=== PATIENT | female | born 1990 | race Caucasian/White ===

== ENCOUNTER 2022-07-17 08:16 | Emergency (ER) | payer OTHER, SELFPAY ==
[2022-07-17 08:26] VITALS: BP 158/90; PULSE 98; O2SAT 93
--- NOTE | 2022-07-17 08:29 | ED.OVERDOSE ---
HPI - Overdose General Chief Complaint: Overdose Stated Complaint: OD,NARCAN BY BYSTANDER W/GOOD RESULTS PER EMS Time Seen by Provider: 07/17/22 08:24 Source: patient and EMS Mode of arrival: EMS History of Present Illness HPI Narrative: overdose of opioid received narcan in the field awake and alert now,denies SI,does not want detox complaint: accidental overdose Onset (ago): hour(s) (1) Context: Accidental Overdose: wanted to get high Treatments Prior to Arrival: narcan Related Data Allergies Allergy/AdvReac Type Severity Reaction Status Date / Time No Known Allergies Allergy Unverified 05/28/20 19:13 [No Known Allergies*] Review of Systems Review of Systems: Yes all other systems are reviewed and are negative Cardiovascular: Cardiovascular: Reports no additional cardiovascular complaints Respiratory: Respiratory: Reports no additional respiratory complaints Gastrointestinal: Gastrointestinal: Reports no additional gastrointestinal complaints Musculoskeletal: Musculoskeletal: Reports no additional musculoskeletal complaints Allergic/Immunologic: Allergic/Immunologic: Reports no additional allergic/immunologic complaints PMFSH Social History Social History Advance Directives: No Advance Directives Information Provided: No Physical Exam Vital Signs: Vital Signs: Last Vital Signs Temp 97.9 F 07/17/22 11:45 Pulse 51 07/17/22 11:45 Resp 18 07/17/22 08:34 BP 121/69 07/17/22 11:45 Pulse Ox 100 07/17/22 11:45 O2 Del Method 07/17/22 11:45 BMI result Body Mass Index 22.4 Const: General: cooperative Nutritional Appearance: well nourished Limitations: no limitations HEENT: Head: Yes normal to inspection Ears: hearing grossly normal bilaterally General nose exam: Normal external nose present Face and sinus: Yes normal facial exam Mouth: Normal oral and palatal mucosa present Throat: Yes posterior oropharynx normal Neck: Neck: Yes full ROM Chest: Chest palpation & inspection: normal inspection of the chest Breast/axilla inspection: normal inspection of the breasts Resp: Effort & Inspection: normal respiratory effort Auscultation: clear to auscultation bilaterally Percussion: percussion normal Cardio: Jugular venous distension: no JVD Rate: regular rate Rhythm: regular rhythm Heart sounds: S1 normal heart sound present GI: Inspection: Yes normal to inspection Palpation (GI): Soft to palpation Percussion: Yes normal to percussion Auscultation: normal bowel sounds : General: Yes no CVA tenderness Back/Spine/Pelvis: Back: no CVA tenderness Skin: General skin exam: no rashes or lesions noted Lesions: no lesions Rashes: no rashes Course Reevaluation(s) Reevaluation #1: SHE IS AWAKE AND ALERT SHE HAS A STABLE GAIT SHE ATE LUNCH. SHE WAS SEEN BY THE [employer] SHE DOES WANT ANY HELP. AT THIS TIME WILL DISCHARGE THE PATIENT HOME Time: 15:34 Discharge Plan Discharge Clinical Impression: Drug overdose Patient Disposition: Home, Self-Care Instructions: Adult Overdose (ED) Additional Instructions: YOU REFUSEd DETOX HELP YOU WELCOME TO COME BACK ANY TIME IF YOU WANT HELP WITH DETOX Interventions: ED Discharge Assessment Last Done: 07/17/22 16:08 Discharge Date/Time: 07/17/22 16:08
--- NOTE | 2022-07-17 08:30 | PC.NURSE ---
PER [employer], THIS PT'S BELONGINGS ARE BEING PUT IN DECON @ THIS TIME
[2022-07-17 08:34] VITALS: BP 150/84; PULSE 60; RESP 18; TEMP 36.1; O2SAT 100; BMI 22.4
[2022-07-17 11:45] VITALS: BP 121/69; PULSE 51; TEMP 36.6; O2SAT 100
--- NOTE | 2022-07-17 11:46 | MHC.CARE ---
Pt declined to engage in SUDE. Pt reports methadone from [facility]. Pt wants to speak with a recovery advocate.
--- NOTE | 2022-07-17 13:45 | MHC.RECOVSUP ---
? Reason for consult Recovery support o Current location: ED13 o Identified substance use concern: Heroin - Overdose - Support ? Intervention: <del>o</del> <del>ATS</del> <del>bed</del> <del>search</del> <del>started/completed/in</del> <del>process</del> <del>o</del> <del>MAT</del> <del>started</del> <del>or</del> <del>to</del> <del>be</del> <del>started</del> <del>o</del> <del>Community</del> <del>resources</del> <del>provided</del> <del>o</del> <del>Harm</del> <del>reduction</del> <del>discussion</del> <del>?</del> <del>Plan:</del> <del>o</del> <del>Referral</del> <del>to</del> <del>[facility]</del> <del>o</del> <del>Bed</del> <del>search</del> <del>in</del> <del>progress</del> <del>to</del> <del>o</del> <del>Follow</del> <del>up</del> <del>tomorrow</del> <del>o</del> <del>Patient</del> <del>awaiting</del> <del>crisis</del> <del>evaluation</del> <del>o</del> <del>Patient</del> <del>to</del> <del>follow</del> <del>up</del> <del>with</del> <del>[facility]</del> <del>after</del> <del>discharge</del> ? Additional information: Patient Refuses any Support.. was able to give patient resources
== END 2022-07-17 16:08 | disposition home or self-care (01) ==
PROVIDERS: Emergency Provider Emergency Medicine
DX: T40.1X1A Poisoning by heroin, accidental (unintentional), initial encounter (principal); Y92.9 Unspecified place or not applicable; Z71.51 Drug abuse counseling and surveillance of drug abuser
CPT/HCPCS: 96360; 99283; 99284

== ENCOUNTER 2022-10-01 10:04 | Emergency (ER) | payer OTHER, SELFPAY ==
--- NOTE | 2022-10-01 10:12 | ED_ITS ---
HPI - Overdose General Chief Complaint: ETOH/Substance Use Stated Complaint: od Source: EMS Mode of arrival: EMS Limitations: no limitations History of Present Illness HPI Narrative: Pt overdosed on heroin she was found unresponsive and she was given narcan,she is now awake and alert,she is no SI and she is declining detox complaint: accidental overdose Onset (ago): hour(s) (1) Intent: wanted to escape Context: Accidental Overdose: wanted to get high Treatments Prior to Arrival: oxygen and narcan Related Data Allergies Allergy/AdvReac Type Severity Reaction Status Date / Time No Known Allergies Allergy Unverified 05/28/20 19:13 [No Known Allergies*] Review of Systems Constitutional: Constitutional: Reports no additional constitutional complaints Cardiovascular: Cardiovascular: Reports no additional cardiovascular complaints Gastrointestinal: Gastrointestinal: Reports no additional gastrointestinal complaints Neurologic: Reports system reviewed and no additional complaints, except as documented and Denies behavioral changes Psychiatric: Psychiatric: Denies behavioral changes and Denies depression [facility] Past Medical History [facility] Narrative: Opioid Use Disorder Social History Social History Advance Directives: No Advance Directives Information Provided: No Physical Exam Vital Signs: Vital Signs: Last Vital Signs Temp 97.9 F 10/01/22 10:14 Pulse 79 10/01/22 11:50 Resp 16 10/01/22 11:50 BP 120/56 L 10/01/22 11:50 Pulse Ox 96 10/01/22 11:50 O2 Del Method 10/01/22 11:50 BMI result Body Mass Index 19.8 Const: General: cooperative, well developed, alert, awake and Physically active HEENT: Head: Yes normal to inspection Ears: hearing grossly normal bilaterally Face and sinus: Yes normal facial exam Mouth: Normal oral and palatal mucosa present Throat: Yes posterior oropharynx normal Neck: Neck: Yes normal visual inspection and Yes full ROM Chest: Chest palpation & inspection: normal inspection of the chest Resp: Effort & Inspection: normal respiratory effort Auscultation: clear to auscultation bilaterally Cardio: Jugular venous distension: no JVD Rate: regular rate Rhythm: regular rhythm GI: Inspection: Yes normal to inspection Palpation (GI): Soft to palpation, not firm, nontender, no guarding and not rigid Percussion: Yes normal to percussion Skin: General skin exam: elasticity normal Lesions: no lesions Rashes: no rashes Extrem: General: Yes normal to inspection and Yes full ROM Right upper extremity: normal to inspection Course Reevaluation(s) Reevaluation #1: She was seen by legal recovery specialist she refused help,she is on methadone refuses detox Time: 12:22 Medications Administered Discontinued Medications Generic Name Dose Route Start Last Admin Trade Name Sadie PRN Reason Stop Dose Admin Ondansetron HCl 4 mg 10/01/22 10:13 10/01/22 10:19 Ondansetron Odt 4 Mg Tab.Rapdis TRANSLINGU 10/01/22 10:14 4 mg ONCE ONE Administration Medical Decision Making Medical Decision Making MDM Narrative: presented with heroin OD will observe get legal recovery specialist to see the pt Differential Diagnosis aspiration pneumonia/endocarditis/respiratory failure Discharge Plan Discharge Clinical Impression: Accidental heroin overdose Patient Disposition: Home, Self-Care Instructions: Narcotic Safety (ED), Opioid Use Disorder (ED) Additional Instructions: you are refusing detox,if you change your mind we are here for you Interventions: Luna-Suicide Risk Severity Scale Last Done: 10/01/22 10:32 Discharge Date/Time: 10/01/22 12:34
[2022-10-01 10:14] VITALS: BP 131/80; PULSE 75; RESP 14; TEMP 36.6; O2SAT 99; BMI 19.8
[2022-10-01] MEDS: Ondansetron ODT 4 MG TAB.RAPDIS TRANSLINGU (10:19)
--- NOTE | 2022-10-01 11:27 | HO.SUDE ---
Met with pt in ED22 to discuss substance use. Pt awake, alert, pleasant and engages in conversation. Pt has difficulty with conversation due to constant limb jerking. Pt reports using 2 bags heroin this morning, IV, after not using x over a month. Pt is currently going to [facility] OT, reports 60 mg daily x 3 months. Pt reports positive effect with methadone and is very happy to be a part of the program. Pt reports crack, [facility], $150 daily. Pt reports involuntary limb movements happen with crack use, states That's why they call me crazy legs. Pt is not interested in ATS at this time. Pt reports living with a friend in [place], David, who pt is requesting t/w to call. David had gone on a cruise and is returning today. Pt reports David will come to [facility] to pick up worker pt when ready. Pt denies questions or concerns at this time. Voicemail left for David, awaiting return call.
[2022-10-01 11:50] VITALS: BP 120/56; PULSE 79; RESP 16; O2SAT 96
--- NOTE | 2022-10-01 12:35 | MHC.RECOVRN ---
Pt requesting to dc to friends house. Provider and RN aware.
== END 2022-10-01 12:34 | disposition home or self-care (01) ==
PROVIDERS: Emergency Provider Emergency Medicine
DX: R40.4 Transient alteration of awareness (principal); T40.1X1A Poisoning by heroin, accidental (unintentional), initial encounter; Y92.9 Unspecified place or not applicable; F11.20 Opioid dependence, uncomplicated
CPT/HCPCS: 99284

== ENCOUNTER 2023-01-14 19:22 | Emergency (ER) | payer OTHER, SELFPAY ==
[2023-01-14] VITALS (10 sets, daily range): BP systolic 91–115; BP diastolic 52–69; PULSE 59–104; RESP 8–16; TEMP 37.2; O2SAT 96–99; BMI 19.1
--- NOTE | ~2023-01-14 | XR_ITS ---
EXAMINATION: XR CHEST CLINICAL INFORMATION: Low respiratory rate COMPARISON: None available. TECHNIQUE: Frontal view of the chest was obtained. FINDINGS: Lung volumes are symmetric. No focal consolidation is seen. There is suggestion of central peribronchial thickening. No evidence of pneumothorax, pleural effusion, or overt pulmonary edema. The cardiomediastinal contour is unremarkable. No acute osseous findings are seen. XR/XR chest 1V IMPRESSION: Suggestion of central peribronchial thickening which may reflect airways disease/bronchitis. No focal consolidation.
--- NOTE | ~2023-01-14 | CT_ITS ---
EXAMINATION: CT HEAD WITHOUT CONTRAST CLINICAL INFORMATION: Altered mental status. COMPARISON: None available. TECHNIQUE: Contiguous axial imaging was performed from the skull base to vertex without intravenous administration of contrast. This CT examination was performed using dose optimization techniques as appropriate, variously including the following: *Automated exposure control. *Adjustment of mA and/or kV according to patient size (this includes techniques or standardized protocols for targeted exams where dose is matched to indication/reason for exam; i.e. extremities or head). *Use of iterative reconstruction technique. DLP: 643 mGy-cm FINDINGS: There is no evidence of acute intracranial hemorrhage or edematous territorial infarction. [place]-white matter differentiation is preserved. There is no abnormal attenuation within the brain parenchyma. The ventricles are normal in morphology and size. No evidence for obstructive hydrocephalus. The cerebellar tonsils are positioned at the level the foramen magnum. The suprasellar cistern remains widely patent. No abnormal mass effect or midline shift. No extra-axial fluid collections. No acute soft tissue or osseous abnormalities. The mastoid air cells and visualized paranasal sinuses are clear. CT/CT head/brain wo IV con IMPRESSION: 1. No evidence of acute intracranial hemorrhage or edematous territorial infarction. 2. No demonstrated abnormal mass effect on the noncontrast evaluation.
--- NOTE | 2023-01-14 19:32 | ECG_ITS ---
Test Reason : OVERDOSE Blood Pressure : / mmHG Vent. Rate : 099 BPM Atrial Rate : 099 BPM P-R Int : 150 ms QRS Dur : 086 ms QT Int : 386 ms P-R-T Axes : 080 072 071 degrees QTc Int : 495 ms Normal sinus rhythm Right atrial enlargement Prolonged QT Abnormal ECG No previous ECGs available Referred By: Jos Souza Electronically Signed By:MARINA ROLLINS MD
[2023-01-14] MEDS: diphenhydrAMINE HCL 50 MG/ML VIAL IM (19:50)
[2023-01-14] MEDS: Haloperidol Lactate 5 MG/ML VIAL IM (19:50)
[2023-01-14] MEDS: LORazepam 2 MG/ML VIAL IM (19:50)
--- NOTE | 2023-01-14 19:55 | ED.OVERDOSE ---
HPI - Overdose General Chief Complaint: Overdose <MARIAM Marie - Last Filed: 01/15/23 01:32> Stated Complaint: ?OD/UNDINF OF SOMETHING,COMB,+REST,PD ONBOARD <MARIAM Marie Last Filed: 01/15/23 01:32> Time Seen by Provider: 01/14/23 19:24 <MARIAM Marie - Last Filed: 01/15/23 01:32> Source: EMS and police <MARIAM Marie - Last Filed: 01/15/23 01:32> Mode of arrival: EMS <MARIAM Marie - Last Filed: 01/15/23 01:32> Limitations: no limitations <MARIAM Marie Last Filed: 01/15/23 01:32> History of Present Illness HPI Narrative: 32-year-old female presents with suspected overdose, arrives via EMS with police on board patient was found with a retic behavior and then was found unresponsive outside of [facility]. Patient unable to provide history or review of systems. Arrives combative, and not cooperative in restraints <MARIAM Marie Last Filed: 01/15/23 01:32> Related Data Allergies/Adverse Reactions: Allergies Allergy/AdvReac Type Severity Reaction Status Date / Time No Known Allergies Allergy Unverified 05/28/20 19:13 [No Known Allergies*] <MARIAM Marie - Last Filed: 01/15/23 01:32> Review of Systems Review of Systems: Yes Unobtainable due to mental status <MAIRAM Marie - Last Filed: 01/15/23 01:32> PMFSH Past Medical History Attestation statement: The following information was validated with the patient. <MARIAM Marie Last Filed: 01/15/23 01:32> Source: old records reviewed and nursing notes reviewed <MARIAM Marie Last Filed: 01/15/23 01:32> Social History Social History: Social History Alcohol intake: current Alcohol intake frequency: a few times a month Smoked in Last 30 Days: Yes Use of substances other than those prescribed or required for medical reasons: Refusing to respond Advance Directives: No Advance Directives Information Provided: No <MARIAM Marie - Last Filed: 01/15/23 01:32> Physical Exam Vital Signs: Vital Signs: Last Vital Signs Temp 97.8 F 01/15/23 05:26 Pulse 71 01/15/23 05:26 Resp 16 01/15/23 05:26 BP 155/78 H 01/15/23 05:26 Pulse Ox 96 01/15/23 05:26 O2 Del Method Room Air 01/14/23 22:25 O2 Flow Rate 2 01/14/23 22:09 BMI result Body Mass Index 19.1 Vital signs stable <MARIAM Marie - Last Filed: 01/15/23 01:32> Vital Signs: Last Vital Signs Temp 97.8 F 01/15/23 05:26 Pulse 71 01/15/23 05:26 Resp 16 01/15/23 05:26 BP 155/78 H 01/15/23 05:26 Pulse Ox 96 01/15/23 05:26 O2 Del Method Room Air 01/14/23 22:25 O2 Flow Rate 2 01/14/23 22:09 BMI result Body Mass Index 19.1 <Tod Paiz MD - Last Filed: 01/15/23 06:23> Appearance: Patient awake, moving all extremities, combative, uncooperative.? No acute distress.? Head: Normocephalic, atraumatic, no step-offs or deformities Eyes: Pupils equal, round and reactive to light.? ENT: Pharynx normal.? Neck: Normal inspection.? Neck supple.? CVS: Rapid rate normal rhythm likely sinus tachycardia.? Pulses normal.? Respiratory: No respiratory distress.? Breath sounds normal.? Abdomen: Soft and nontender.? Skin: Skin warm and dry.? Normal skin color.? Normal skin turgor.? Extremities: No lower extremity edema.? No calf ttp. 5/5 strength to bilateral upper and lower extremities Neuro: Patient awake, moving all extremities, combative, uncooperative. On re-evaluation cranial nerves 2-12 intact. <MARIAM Marie - Last Filed: 01/15/23 01:32> Course Reevaluation(s) Reevaluation #1: Patient with a slight leukopenia in slight normocytic anemia which appears to be around her baseline. Chemistry unremarkable. Salicylates, acetaminophen and ethanol negative. Urine toxicology pending. COVID negative. Head CT no acute intracranial hemorrhage or edematous territorial infarction. No demonstrated abnormal mass-effect on noncontrast evaluation. I did order chest CT on this patient which is pending. Sign-out given to <MARIAM Marie - Last Filed: 01/15/23 01:32> Time: 01:31 <MARIAM Marie - Last Filed: 01/15/23 01:32> Reevaluation #2: 0615: End physician observation: I assumed care of this patient from my colleague, Norris Souza at 02:00 hours. Patient's chest x-ray and urine tox screen work pending. The radiology reading is as follows of chest is as follows:: XR chest 1V IMPRESSION: Suggestion of central peribronchial thickening which may reflect airways disease/bronchitis. No focal consolidation. Dictated By:Dennis Alarcon MD The patient's urine tox screen was positive for fentanyl and for cocaine. The patient is awake and alert. I did talk to the patient and she states that she thought she was injecting cocaine. She is not interested in talking to our care team about getting into a drug treatment program. The patient is requesting to go home. I did tell her that it was a very dangerous time to use street drugs and that all street drugs are contaminated with fentanyl if she continues to use she will eventually from a fentanyl overdose. The patient was given intranasal Narcan rescue pack to go home with. She was given printed and verbal instructions and discharged home <Tod Paiz MD - Last Filed: 01/15/23 06:23> Time: 06:15 <Tod Paiz MD - Last Filed: 01/15/23 06:23> Medications Administered Discontinued Medications Generic Name Dose Route Start Last Admin Trade Name Freq PRN Reason Stop Dose Admin Diphenhydramine HCl 50 mg 01/14/23 19:24 01/14/23 19:50 Diphenhydramine Hcl 50 Mg/Ml Vial IM 01/14/23 19:25 50 mg ONCE ONE Administration Haloperidol Lactate 5 mg 01/14/23 19:24 01/14/23 19:50 Haloperidol Lactate 5 Mg/Ml Vial IM 01/14/23 19:25 5 mg ONCE ONE Administration Lorazepam 2 mg 01/14/23 19:24 01/14/23 19:50 Lorazepam 2 Mg/Ml Vial IM 01/14/23 19:25 2 mg STAT STA Administration Naloxone HCl 4 mg 01/15/23 00:52 01/15/23 00:55 Naloxone Hcl Nasal 4 Mg [place] NOSTRILALT 01/15/23 00:53 4 mg ONCE ONE Administration Naloxone HCl 4 mg 01/15/23 01:29 01/15/23 02:30 Naloxone Hcl Nasal Take Home 4 Mg [place] NOSTRILALT 01/15/23 01:30 4 mg ONCE ONE Administration <MARIAM Marie - Last Filed: 01/15/23 01:32> Medications Administered Discontinued Medications Generic Name Dose Route Start Last Admin Trade Name Dougq PRN Reason Stop Dose Admin Diphenhydramine HCl 50 mg 01/14/23 19:24 01/14/23 19:50 Diphenhydramine Hcl 50 Mg/Ml Vial IM 01/14/23 19:25 50 mg ONCE ONE Administration Haloperidol Lactate 5 mg 01/14/23 19:24 01/14/23 19:50 Haloperidol Lactate 5 Mg/Ml Vial IM 01/14/23 19:25 5 mg ONCE ONE Administration Lorazepam 2 mg 01/14/23 19:24 01/14/23 19:50 Lorazepam 2 Mg/Ml Vial IM 01/14/23 19:25 2 mg STAT STA Administration Naloxone HCl 4 mg 01/15/23 00:52 01/15/23 00:55 Naloxone Hcl Nasal 4 Mg [place] NOSTRILALT 01/15/23 00:53 4 mg ONCE ONE Administration Naloxone HCl 4 mg 01/15/23 01:29 01/15/23 02:30 Naloxone Hcl Nasal Take Home 4 Mg [place] NOSTRILALT 01/15/23 01:30 4 mg ONCE ONE Administration <Tod Paiz MD - Last Filed: 01/15/23 06:23> Medical Decision Making Medical Decision Making MDM Narrative: 32-year-old female presents the emergency department with EMS and police on cut cooperative, combative after substance abuse. Physical exam patient awake, moving all extremities, uncooperative not answering questions. Diaphoretic. Regular rate past rhythm likely secondary to agitation. Lungs clear. Abdomen soft nontender nondistended. Pupils pinpoint bilaterally however responsive Likely polysubstance abuse. Will rule out intracranial hemorrhage. Will also rule out electrolyte abnormalities. Will also rule out drug induced rhabdomyolysis Plan labs, imaging, U tox, ethanol, salicylates and acetaminophen. Due to patient's behavior she has a harm to self and others, medication restraints have been put in as well as 4 point physical restraints. Nursing in security at bedside upon patient's arrival. <MARIAM Marie - Last Filed: 01/15/23 01:32> Differential Diagnosis Differential Diagnoses: The differential diagnosis associated with the presentation includes <MARIAM Marie - Last Filed: 01/15/23 01:32> Likely polysubstance abuse. Will rule out intracranial hemorrhage. Will also rule out electrolyte abnormalities. Will also rule out drug induced rhabdomyolysis <MARIAM Marie - Last Filed: 01/15/23 01:32> Admission/Observation Consideration of admission/observation: Escalation of care including admission/observation considered <MARIAM Marie Last Filed: 01/15/23 01:32> Lab Data MDM Lab Attestation statement: I reviewed the patient's lab results. <MARIAM Marie - Last Filed: 01/15/23 01:32> Result Diagrams: 01/14/23 20:04 01/14/23 20:04 <MARIAM Marie Last Filed: 01/15/23 01:32> Labs: Lab Results 01/14/23 01/14/23 01/14/23 Range/Units 20:04 20:04 20:04 WBC 3.9 L (4.8-10.8) X10*3/uL RBC 4.05 L (4.20-5.50) X10*6/uL Hgb 11.6 L (12.0-16.0) g/dl Hct 35.5 L (37.0-47.0) % MCV 87.7 (80.0-98.0) fL MCH 28.6 (27.0-33.0) pg MCHC 32.7 (31.0-35.0) g/dl RDW 13.5 (11.0-16.0) % Plt Count 260 (160-400) X10*3/uL MPV 9.5 (9.4-12.3) fL Immature Gran % (Auto) 0.3 (0.0-0.4) % Neut % (Auto) 43.8 L (45-73) % Lymph % (Auto) 43.4 H (20-40) % [place] % (Auto) 8.3 (2-11) % Eos % (Auto) 3.4 (0-4) % Baso % (Auto) 0.8 (0-2) % Lymph # (Auto) 1.7 (1.2-4.9) X10*3/uL [place] # (Auto) 0.3 (0.1-1.2) X10*3/uL Eos # (Auto) 0.1 (0.0-0.4) X10*3/uL Baso # (Auto) 0.0 (0.0-0.2) X10*3/uL Abs Immat Gran (auto) 0.01 (0.00-0.03) X10*3/uL Absolute Neuts (auto) 1.7 L (2.0-8.3) x10*3/uL Absolute Nucleated RBC 0.000 (0.0-0.012) X10*3/uL Nucleated RBC % (auto) 0.0 (0.0-0.2) /100WBC Sodium 144 (135-145) mmol/L Potassium 3.3 (3.3-5.1) mmol/L Chloride 109 H (96-108) mmol/L Carbon Dioxide 25 (22-29) mmol/L Anion Gap 13 (12-20) BUN 15 (9-16) mg/dL Creatinine 0.97 (0.5-1.4) mg/dL Estim Creat Clear Calc 66.3 Estimated GFR > 60 Random Glucose 65 (60-115) mg/dL Calcium 9.2 (8.4-10.2) mg/dL Magnesium 2.0 (1.6-2.6) mg/dL Total Bilirubin 0.5 (0.0-1.0) mg/dL AST 26 (5-31) U/L ALT 38 H (0-31) U/L Alkaline Phosphatase 69 (39-117) U/L Total Creatine Kinase 124 (26-140) U/L Total Protein 7.4 (6.5-8.0) g/dL Albumin 4.3 (3.5-5.0) g/dL Salicylates < 5.0 L (15-30) mg/dL Urine Opiates Screen (Not Detect) Urine Fentanyl Screen (Not Detect) Acetaminophen < 17 (<30) mcg/mL Ur Barbiturates Screen (Not Detect) Ur Phencyclidine Scrn (Not Detect) Ur Amphetamines Screen (Not Detect) U Benzodiazepines Scrn (Not Detect) Urine Cocaine Screen (Not Detect) U Marijuana (THC) Screen (Not Detect) Ethyl Alcohol mg/dL COVID-19 ([place]) Negative (Negative) COVID-19 Clin Com See Note 01/14/23 01/15/23 Range/Units 20:04 05:33 WBC (4.8-10.8) X10*3/uL RBC (4.20-5.50) X10*6/uL Hgb (12.0-16.0) g/dl Hct (37.0-47.0) % MCV (80.0-98.0) fL MCH (27.0-33.0) pg MCHC (31.0-35.0) g/dl RDW (11.0-16.0) % Plt Count (160-400) X10*3/uL MPV (9.4-12.3) fL Immature Gran % (Auto) (0.0-0.4) % Neut % (Auto) (45-73) % Lymph % (Auto) (20-40) % [place] % (Auto) (2-11) % Eos % (Auto) (0-4) % Baso % (Auto) (0-2) % Lymph # (Auto) (1.2-4.9) X10*3/uL [place] # (Auto) (0.1-1.2) X10*3/uL Eos # (Auto) (0.0-0.4) X10*3/uL Baso # (Auto) (0.0-0.2) X10*3/uL Abs Immat Gran (auto) (0.00-0.03) X10*3/uL Absolute Neuts (auto) (2.0-8.3) x10*3/uL Absolute Nucleated RBC (0.0-0.012) X10*3/uL Nucleated RBC % (auto) (0.0-0.2) /100WBC Sodium (135-145) mmol/L Potassium (3.3-5.1) mmol/L Chloride (96-108) mmol/L Carbon Dioxide (22-29) mmol/L Anion Gap (12-20) BUN (9-16) mg/dL Creatinine (0.5-1.4) mg/dL Estim Creat Clear Calc Estimated GFR Random Glucose (60-115) mg/dL Calcium (8.4-10.2) mg/dL Magnesium (1.6-2.6) mg/dL Total Bilirubin (0.0-1.0) mg/dL AST (5-31) U/L ALT (0-31) U/L Alkaline Phosphatase (39-117) U/L Total Creatine Kinase (26-140) U/L Total Protein (6.5-8.0) g/dL Albumin (3.5-5.0) g/dL Salicylates (15-30) mg/dL Urine Opiates Screen Not Detected (Not Detect) Urine Fentanyl Screen POSITIVE H (Not Detect) Acetaminophen (<30) mcg/mL Ur Barbiturates Screen Not Detected (Not Detect) Ur Phencyclidine Scrn Not Detected (Not Detect) Ur Amphetamines Screen Not Detected (Not Detect) U Benzodiazepines Scrn Not Detected (Not Detect) Urine Cocaine Screen POSITIVE H (Not Detect) U Marijuana (THC) Screen Not Detected (Not Detect) Ethyl Alcohol < 10 mg/dL COVID-19 ([place]) (Negative) COVID-19 Clin Com <MARIAM Marie - Last Filed: 01/15/23 01:32> Lab Results 01/14/23 01/14/23 01/14/23 Range/Units 20:04 20:04 20:04 WBC 3.9 L (4.8-10.8) X10*3/uL RBC 4.05 L (4.20-5.50) X10*6/uL Hgb 11.6 L (12.0-16.0) g/dl Hct 35.5 L (37.0-47.0) % MCV 87.7 (80.0-98.0) fL MCH 28.6 (27.0-33.0) pg MCHC 32.7 (31.0-35.0) g/dl RDW 13.5 (11.0-16.0) % Plt Count 260 (160-400) X10*3/uL MPV 9.5 (9.4-12.3) fL Immature Gran % (Auto) 0.3 (0.0-0.4) % Neut % (Auto) 43.8 L (45-73) % Lymph % (Auto) 43.4 H (20-40) % [place] % (Auto) 8.3 (2-11) % Eos % (Auto) 3.4 (0-4) % Baso % (Auto) 0.8 (0-2) % Lymph # (Auto) 1.7 (1.2-4.9) X10*3/uL [place] # (Auto) 0.3 (0.1-1.2) X10*3/uL Eos # (Auto) 0.1 (0.0-0.4) X10*3/uL Baso # (Auto) 0.0 (0.0-0.2) X10*3/uL Abs Immat Gran (auto) 0.01 (0.00-0.03) X10*3/uL Absolute Neuts (auto) 1.7 L (2.0-8.3) x10*3/uL Absolute Nucleated RBC 0.000 (0.0-0.012) X10*3/uL Nucleated RBC % (auto) 0.0 (0.0-0.2) /100WBC Sodium 144 (135-145) mmol/L Potassium 3.3 (3.3-5.1) mmol/L Chloride 109 H (96-108) mmol/L Carbon Dioxide 25 (22-29) mmol/L Anion Gap 13 (12-20) BUN 15 (9-16) mg/dL Creatinine 0.97 (0.5-1.4) mg/dL Estim Creat Clear Calc 66.3 Estimated GFR > 60 Random Glucose 65 (60-115) mg/dL Calcium 9.2 (8.4-10.2) mg/dL Magnesium 2.0 (1.6-2.6) mg/dL Total Bilirubin 0.5 (0.0-1.0) mg/dL AST 26 (5-31) U/L ALT 38 H (0-31) U/L Alkaline Phosphatase 69 (39-117) U/L Total Creatine Kinase 124 (26-140) U/L Total Protein 7.4 (6.5-8.0) g/dL Albumin 4.3 (3.5-5.0) g/dL Salicylates < 5.0 L (15-30) mg/dL Urine Opiates Screen (Not Detect) Urine Fentanyl Screen (Not Detect) Acetaminophen < 17 (<30) mcg/mL Ur Barbiturates Screen (Not Detect) Ur Phencyclidine Scrn (Not Detect) Ur Amphetamines Screen (Not Detect) U Benzodiazepines Scrn (Not Detect) Urine Cocaine Screen (Not Detect) U Marijuana (THC) Screen (Not Detect) Ethyl Alcohol mg/dL COVID-19 ([place]) Negative (Negative) COVID-19 Clin Com See Note 01/14/23 01/15/23 Range/Units 20:04 05:33 WBC (4.8-10.8) X10*3/uL RBC (4.20-5.50) X10*6/uL Hgb (12.0-16.0) g/dl Hct (37.0-47.0) % MCV (80.0-98.0) fL MCH (27.0-33.0) pg MCHC (31.0-35.0) g/dl RDW (11.0-16.0) % Plt Count (160-400) X10*3/uL MPV (9.4-12.3) fL Immature Gran % (Auto) (0.0-0.4) % Neut % (Auto) (45-73) % Lymph % (Auto) (20-40) % [place] % (Auto) (2-11) % Eos % (Auto) (0-4) % Baso % (Auto) (0-2) % Lymph # (Auto) (1.2-4.9) X10*3/uL [place] # (Auto) (0.1-1.2) X10*3/uL Eos # (Auto) (0.0-0.4) X10*3/uL Baso # (Auto) (0.0-0.2) X10*3/uL Abs Immat Gran (auto) (0.00-0.03) X10*3/uL Absolute Neuts (auto) (2.0-8.3) x10*3/uL Absolute Nucleated RBC (0.0-0.012) X10*3/uL Nucleated RBC % (auto) (0.0-0.2) /100WBC Sodium (135-145) mmol/L Potassium (3.3-5.1) mmol/L Chloride (96-108) mmol/L Carbon Dioxide (22-29) mmol/L Anion Gap (12-20) BUN (9-16) mg/dL Creatinine (0.5-1.4) mg/dL Estim Creat Clear Calc Estimated GFR Random Glucose (60-115) mg/dL Calcium (8.4-10.2) mg/dL Magnesium (1.6-2.6) mg/dL Total Bilirubin (0.0-1.0) mg/dL AST (5-31) U/L ALT (0-31) U/L Alkaline Phosphatase (39-117) U/L Total Creatine Kinase (26-140) U/L Total Protein (6.5-8.0) g/dL Albumin (3.5-5.0) g/dL Salicylates (15-30) mg/dL Urine Opiates Screen Not Detected (Not Detect) Urine Fentanyl Screen POSITIVE H (Not Detect) Acetaminophen (<30) mcg/mL Ur Barbiturates Screen Not Detected (Not Detect) Ur Phencyclidine Scrn Not Detected (Not Detect) Ur Amphetamines Screen Not Detected (Not Detect) U Benzodiazepines Scrn Not Detected (Not Detect) Urine Cocaine Screen POSITIVE H (Not Detect) U Marijuana (THC) Screen Not Detected (Not Detect) Ethyl Alcohol < 10 mg/dL COVID-19 ([place]) (Negative) COVID-19 Clin Com <Tod Paiz MD - Last Filed: 01/15/23 06:23> Independent Interpretation I performed an independent interpretation of an: CT Scan <MARIAM Marie - Last Filed: 01/15/23 01:32> Radiology Impression Discussion of test interpretation with radiology: I have reviewed the radiologist's reading. <MARIAM Marie - Last Filed: 01/15/23 01:32> Core Measures AMI core measures followed: Yes <MARIAM Marie - Last Filed: 01/15/23 01:32> Measure exclusions: not indicated <MARIAM Marie Last Filed: 01/15/23 01:32> Critical Care Time Critical Care Time Critical Care Time: No <MARIAM Marie - Last Filed: 01/15/23 01:32> Discharge Plan Discharge Clinical Impression: Cocaine abuse Drug overdose Qualifiers: Encounter type: initial encounter Injury intent: accidental or unintentional Qualified Code(s): T50.901A - Poisoning by unspecified drugs, medicaments and biological substances, accidental (unintentional), initial encounter Fentanyl poisoning Qualifiers: Encounter type: initial encounter Injury intent: accidental or unintentional Qualified Code(s): T40.411A - Poisoning by fentanyl or fentanyl analogs, accidental (unintentional), initial encounter <MARIAM Marie - Last Filed: 01/15/23 01:32> Patient Disposition: Home, Self-Care <MARIAM Marie - Last Filed: 01/15/23 01:32> Instructions: Adult Overdose (ED) <MARIAM Marie - Last Filed: 01/15/23 01:32> Additional Instructions: Your urine tox screen was positive for fentanyl and cocaine. You almost from a fentanyl overdose today. Your are being discharged home with intranasal Narcan. I offered counseling from our care team to try to help you with your drug use disorder however you refused at this time If you change your mind and want help getting into a drug treatment program please return to the emergency department and will get our care team to see you. If you are going to continue to use heroin, you should make sure that there is a sober person with you that is not using drugs and that this person can administer intranasal Narcan in the event that you stop breathing. Follow-up with your doctor in 2 days. Please return to the emergency department if your symptoms get worse or if you develop any symptoms that are concerning to you. <MARIAM Marie Last Filed: 01/15/23 01:32> Referrals: Physician,Unknown J [Primary Care Provider] - 2 days <MARIAM Marie - Last Filed: 01/15/23 01:32> Stand Alone Forms: Work/School Release <MARIAM Marie - Last Filed: 01/15/23 01:32>
[2023-01-14 20:10] LABS: MANUAL DIFF FLAG NO
[2023-01-14 20:15] LABS: Basophils Percent Auto 0.8 % (0-2); Eosinophils Absolute Auto 0.1 X10*3/uL (0.0-0.4); Eosinophils Percent Auto 3.4 % (0-4); Hematocrit 35.5 % (37.0-47.0); Hemoglobin 11.6 g/dl (12.0-16.0); Imm Gran Abs Auto 0.01 X10*3/uL (0.00-0.03); Imm Gran Pct Auto 0.3 % (0.0-0.4); Lymphocytes Absolute Auto 1.7 X10*3/uL (1.2-4.9); Lymphocytes Percent Auto 43.4 % (20-40); Mean Corpuscular HGB Conc 32.7 g/dl (31.0-35.0); Mean Corpuscular Hemoglobin 28.6 pg (27.0-33.0); Mean Corpuscular Volume 87.7 fL (80.0-98.0); Mean Platelet Volume 9.5 fL (9.4-12.3); Monocytes Absolute Auto 0.3 X10*3/uL (0.1-1.2); Monocytes Percent Auto 8.3 % (2-11); Neutrophils Absolute Auto 1.7 x10*3/uL (2.0-8.3); Neutrophils Percent Auto 43.8 % (45-73); Platelet Count 260 X10*3/uL (160-400); Red Blood Count 4.05 X10*6/uL (4.20-5.50); Red Cell Distribution Width 13.5 % (11.0-16.0); White Blood Count 3.9 X10*3/uL (4.8-10.8)
[2023-01-14 20:36] LABS: Acetaminophen LAB < 17 mcg/mL (<30); Alanine Aminotransferase 38 U/L (0-31); Albumin Level 4.3 g/dL (3.5-5.0); Alkaline Phosphatase 69 U/L (39-117); Anion Gap 13 (12-20); Aspartate Amino Transferase 26 U/L (5-31); Bilirubin Total 0.5 mg/dL (0.0-1.0); Blood Urea Nitrogen 15 mg/dL (9-16); Calcium 9.2 mg/dL (8.4-10.2); Carbon Dioxide 25 mmol/L (22-29); Chloride 109 mmol/L (96-108); Creatinine Clr Calc Pharmacy 66.3; Estimated Glomerular Filt Rate > 60; Glucose Random 65 mg/dL (60-115); Potassium 3.3 mmol/L (3.3-5.1); Salicylate < 5.0 mg/dL (15-30); Sodium 144 mmol/L (135-145); Total Protein 7.4 g/dL (6.5-8.0)
[2023-01-14 20:37] LABS: Ethanol < 10 mg/dL
[2023-01-14 20:44] LABS: COVID-19 Test Negative (Negative); IDNOW Serial# 9DB6401D
--- NOTE | 2023-01-14 20:56 | PC.NURSE ---
pt brought in by EMS accompanied by PD, found by [facility] downw unresponsive, per EMS the boyfriend stated the patient brought some drugs (of unknown type) and took them. pt then became unresponsive. When EMS arrived patient was combative and uncooperative, PD arrived and assisted with transport to hospital upon arrival, pt is combative, exit seeking and uncooperative with care. Removed EMS restrained and placed patient on stretcher in four point restraints per verbal order of MARIAM Caldwell, pt given haldol, benadryl and ativan per verbal order as well. Pt fell asleep, placed on monitor and capnography. Pt changed over into gown. Pt is now in CT, restraints were removed at 2044 due to pt staying asleep, no apparent distress at this time, respirations even and unlabored, skin pink warm and sweaty, no new MD orders at this time, continue observation for safety
--- NOTE | 2023-01-14 23:01 | PC.NURSE ---
pt continue to sleep, respirations equal and unlabored, pt no longer sweating, blanket placed on patient
--- NOTE | 2023-01-14 23:33 | MHC.EDTECH ---
i took over this assignment , vitals were taken and entered
--- NOTE | 2023-01-14 23:56 | PC.NURSE ---
report received at 2310 and care assumed. RN to bedside for primary evaluation of patient around 2330 and pt was found to be resting comfortably and quietly in stretcher with eyes closed, she was in a regular hospital gown with bra underneath and jeans in place, belongings also noted to be at bedside in belongings bag. Security made aware and security to bedside to assist with a change management lead. The pt was difficult to arouse, requiring deep sternal rub at which time she was noted to try and retract from the motion and move my hand with hers. THe pt briefly opened her eyes however that was for a short period of time despite constant and continued verbal interaction/stimulation by this RN. Pt's bra and jeans removed, hospital gown was removed and replaced with a crisis olga and pants with security present to take her belongings. Pt currently breathing 9-10 breaths per minute (counted by RN and confirmed by monitor) with a capnography of 48-51, she is Sinus Leonel with a heart rate fluctuating between 48-51 on the ekg monitor tech. RN to consult with provider regarding plan of care and to make them aware of her deeply sedatative state
[2023-01-15] MEDS: Naloxone HCl Nasal 4 MG SPRAY NOSTRILALT (00:55)
[2023-01-15 02:19] VITALS: BP 104/77; PULSE 74; RESP 14; TEMP 36.3; O2SAT 95
--- NOTE | 2023-01-15 02:24 | PC.NURSE ---
RN to bedside for re-eval. Pt noted to now be curled up in a position resting in stretcher with eyes closed, respirations even and unlabored without acute distress noted. She is breathing 18-20 breaths per minute, moving all extremities. Pt given a warm blanket, sticker pulse ox probe applied for continued O2 assessment and the HOB lowered for comfort. Although pt's respirations have seemed to normalize her O2 sat is 90s on room air witha good pleth wave and her capnography readings are now WNL. Pupils remain pinpoint bilaterally
[2023-01-15] MEDS: Naloxone HCl Nasal TAKE HOME 4 MG SPRAY NOSTRILALT ×2 (02:30→07:29)
--- NOTE | 2023-01-15 02:50 | PC.NURSE ---
Pt with positive response to previously administered 2nd dose of Narcan. Pt noted to be moving around more in the stretcher, O2 sats have risen to the high 90s and capnography now WNL. Staff will continue to monitor the patient.
[2023-01-15 04:30] VITALS: BP 116/76; PULSE 72; RESP 14; O2SAT 95
[2023-01-15 05:26] VITALS: BP 155/78; PULSE 71; RESP 16; TEMP 36.6; O2SAT 96
--- NOTE | 2023-01-15 05:33 | PC.NURSE ---
Pt continues to rest in stretcher with eyes closed, pt noted to be restless in her stretcher intermittently with arms and legs flailing/moving around without any real purpose. She remains with O2 sat in the high 90s, cafeteria monitor leads she continues to remove (unintentionally) as a result of her restlessness/frequent moving around in the stretcher. Urine sample obtained previously as EDT reports pt was able to get up out of bed and ambulate to bathroom with supervision.
[2023-01-15 05:53] LABS: Amphetamine Screen Urine Not Detected (Not Detect); Barbiturates, Urine Not Detected (Not Detect); Benzodiazepines Screen Urine Not Detected (Not Detect); Cannabinoid Screen Urine Not Detected (Not Detect); Cocaine Screen Urine POSITIVE (Not Detect); Fentanyl, urine POSITIVE (Not Detect); Opiate Screen Urine Not Detected (Not Detect); Phencyclidine Screen Urine Not Detected (Not Detect)
--- NOTE | 2023-01-15 07:07 | MHC.CARE ---
Pt was seen by Care team for SUDE consult. She currently denies SI. She declined interest in substance use treatment or in talking to the Recovery Coaches.
== END 2023-01-15 07:38 | disposition home or self-care (01) ==
PROVIDERS: Physician Assistant; Emergency Provider Emergency Medicine Emergency Medical Services
DX: R40.4 Transient alteration of awareness (principal); R45.6 Violent behavior; T40.5X1A Poisoning by cocaine, accidental (unintentional), initial encounter; T40.411A Poisoning by fentanyl or fentanyl analogs, accidental (unintentional), initial encounter; F14.10 Cocaine abuse, uncomplicated; Y92.511 Restaurant or cafe as the place of occurrence of the external cause; Z20.822 Contact with and (suspected) exposure to COVID-19
CPT/HCPCS: 36415; 70450; 71045; 80053; 80143; 80179; 80307; 82550; 83735; 85025; 87635; 93005; 96372; 99285; J1200; J2060

== ENCOUNTER 2023-03-06 10:31 | Emergency (ER) | payer OTHER, SELFPAY ==
[2023-03-06 10:50] VITALS: PULSE 80; O2SAT 97; BMI 19.9
--- NOTE | 2023-03-06 10:55 | ED.GENADULT ---
HPI - General Adult General Chief complaint: General Medical Stated complaint: WANTS DETOX FROM HEROIN Time Seen by Provider: 03/06/23 10:49 Source: patient Mode of arrival: EMS Limitations: no limitations History of Present Illness HPI narrative: 32 year old female with history of IVDU and polysubstance abuse presents today via EMS after using cocaine. Patient states that she is currently on methadone and admits to smoking cocaine prior to arrival. She states her boyfriend, who she lives with, dropped her off in [place] today. Admits to not taking her medications in days because they're in [place] . Denies SI/HI. No current medical complaints and states she'd like to go home. Related Data Allergies Allergy/AdvReac Type Severity Reaction Status Date / Time No Known Allergies Allergy Unverified 05/28/20 19:13 [No Known Allergies*] Review of Systems Review of Systems: Yes all other systems are reviewed and are negative PMFSH Social History Social History Alcohol intake: current Alcohol intake frequency: a few times a month Smoked in Last 30 Days: Yes Use of substances other than those prescribed or required for medical reasons: Yes Substance Use Type: Crack/Cocaine Substance Use Frequency: Chronic Longstanding Advance Directives: No Advance Directives Information Provided: Yes Physical Exam ED Vital Signs: Vital Signs - 24 hr 03/06/23 11:07 03/06/23 12:23 Pulse Rate 91 95 Respiratory Rate 20 Blood Pressure 134/87 Pulse Oximetry 97 94 Oxygen Delivery Method Room Air Room Air BMI result Body Mass Index 19.9 Const Other: patient appearing older than states age, bizzare behavior, screaming out, has chorio athitosis-like movements Nutritional Appearance: thin Orientation/consciousness: oriented to person and patient oriented x3 Limitations: no limitations HENMT Head: Yes normal to inspection Ears: external ears normal General nose exam: Normal external nose present Mouth: Normal oral and palatal mucosa present and oropharynx normal Throat: Yes posterior oropharynx normal Eyes General: appearance normal, both eyes and all related structures Neck Neck: Yes normal visual inspection Chest Chest palpation & inspection: normal inspection of the chest Resp Auscultation: clear to auscultation bilaterally Cardio Jugular venous distension: no JVD Rate: regular rate Rhythm: regular rhythm Heart sounds: S1 normal heart sound present and S2 normal heart sound present GI Inspection: Yes normal to inspection Palpation (GI): Soft to palpation, nontender and No hepatosplenomegaly present Auscultation: normal bowel sounds General: Yes no CVA tenderness Back/Spine/Pelvis Back: no CVA tenderness Skin General skin exam: no rashes or lesions noted Neuro General: oriented to person and patient oriented x3 Cranial nerves: Yes CN's II-XII intact bilaterally Motor exam (neuro): 5/5 motor strength present throughout Extrem General: Yes normal to inspection Psych Appearance: grossly normal Course Reevaluation(s) Reevaluation #1: Patient with drug abuse history, recent relapse, shooting IV heroin and smoking crack, forced to come in by police. Denies SI/HI. Is not a threat to others. Refuses detox. Her father came to bring her home. Patient discharged. Time: 14:19 Medical Decision Making Differential Diagnosis Differential Diagnoses: The differential diagnosis associated with the presentation includes (polysubstance abuse, cocaine, heroin, PCP were all considered. ) Admission/Observation Consideration of admission/observation: Escalation of care including admission/observation considered (Patient with polysubstance abuse, considered admission to psych however pt denied SI/HI, was not trying to hurt herself or others.) Consult Healthcare Provider Management of the patient was discussed with: Behavioral Health Provider (care team for substance abuse) Tests considered The following testing was considered but not selected: Did consider a drug screen but patient refusing detox- did not want bloods or urine done. Social Determinants Patient?s care significantly limited by Social Determinants of Health including: Inadequate housing, Low income and Alcoholism and drug addiction in family Discharge Plan Discharge Clinical Impression: Polysubstance abuse Patient Disposition: Home, Self-Care Instructions: Polysubstance Abuse (ED) Referrals: Physician,Nonstaff [Primary Care Provider] - 3 days
--- NOTE | 2023-03-06 10:58 | PC.NURSE ---
Alert and oriented. arrived via ems [place] in park by waylon ramirse. Patient reports last using crack about an hour ago. states is in methadone program but made a stupid mistake by using drugs today. Unable to sit still, crying, stating grandmother a week ago. Denies SI/HI. Able to be re-directed for short periods of time.
[2023-03-06 11:07] VITALS: BP 134/87; PULSE 91; RESP 20; O2SAT 97
--- NOTE | 2023-03-06 12:03 | MHC.RECOVSUP ---
Met with pt in [facility] who is here for CAROLYNN. PT informs she does not want any recovery support and is ready to go home. Pt provided with recovery resources and pt has no other questions or concerns at this time.
--- NOTE | 2023-03-06 12:18 | PC.NURSE ---
Pt spoke with Ryder (friend) attempting to obtain ride home, this RN spoke with ryder as well, given information rafal morrell . Ryder states he might pick up operator pt at some point
[2023-03-06 12:23] VITALS: PULSE 95; O2SAT 94
--- NOTE | 2023-03-06 13:15 | PC.NURSE ---
Thrashing body around on bed, able to be re-directed for only small periods of time. Appears to be responding to internal stimuli. Accidentally banging arms and legs into wall and sides of stretcher and removing clothing. To be transfered to bed 1
[2023-03-06 14:33] VITALS: BP 135/92; PULSE 87; RESP 16; O2SAT 96
== END 2023-03-06 14:43 | disposition home or self-care (01) ==
PROVIDERS: Emergency Provider Emergency Medicine
DX: F19.10 Other psychoactive substance abuse, uncomplicated (principal); F11.20 Opioid dependence, uncomplicated
CPT/HCPCS: 99284

== ENCOUNTER 2024-07-01 21:43 | Emergency (ER) | payer OTHER, SELFPAY ==
[2024-07-01 21:56] VITALS: BP 112/54; BP 121/77; PULSE 52; PULSE 72; RESP 14; TEMP 36.9; O2SAT 99; BMI 19.4
--- NOTE | 2024-07-02 00:22 | ED_ITS ---
HPI - Alcohol General Chief Complaint: ETOH/Substance Use Stated Complaint: crack cocaine use Time Seen by Provider: 07/02/24 00:07 Source: patient and EMS Mode of arrival: EMS Limitations: language barrier History of Present Illness ED Provider: Dr. Sandy Mackenzie HPI narrative: patient comes to the emergency room via ambulance, patient was found out in the community consuming crack cocaine. Patient is very somnolent but able to answer questions, patient denies any falls, denies SI or HI. Patient states that she is just sleepy. Denies pain anywhere. Related Data Allergies Allergy/AdvReac Type Severity Reaction Status Date / Time No Known Allergies Allergy Verified 07/01/24 22:05 [No Known Allergies*] Review of Systems Review of Systems: Constitutional : No Weight loss, No Fever, No Chills, No Night Sweats, No Fa tigue, No Malaise ENT/Mouth : No Hearing loss, No Ear Pain, No Nasal Congestion, No Sinus Pain, No Hoarseness, No sore throat, No Rhinorrhea, No Swallowing Difficulty Eyes: No Eye Pain, No Swelling, No Redness, No Foreign Body, No Discharge, No Vision Changes Cardiovascular : No Chest Pain, No SOB, No Dyspnea on Exertion, No Orthopnea, No Edema, No Palpitations Respiratory : No Cough, No Sputum, No Wheezing, No Smoke Exposure, No Dyspnea Gastrointestinal : No Nausea, No Vomiting, No Diarrhea, No Constipation, No abdominal Pain, No Hematochezia, No Melena Genitourinary : no irregular bleeding, No Dysuria, No Urinary Frequency, No Hematuria, No Urinary Incontinence, No Urgency, No Flank Pain, No Urinary Flow Changes, No Hesitancy Musculoskeletal : No joint pain, No Myalgias, No Joint Swelling Skin : No Skin Lesions, No rash Neuro : No Weakness, No Numbness, No Paresthesias, No Loss of Consciousness, No Dizziness, No Headache Psych : No Anxiety/Panic, No Depression, Denies SI or HI, admits to using crack cocaine Heme/Lymph: No Bruising, No Bleeding,No Lymphadenopathy Endocrine : No Polyuria, No Polydipsia, No Temperature Intolerance PMFSH Past Medical History Medical History (Updated 07/02/24 @ 00:25 by Sandy Mackenzie MD) Polysubstance abuse Social History Social History Alcohol intake: current Alcohol intake frequency: a few times a month Substance Use Type: Crack/Cocaine Advance Directives: No Advance Directives Information Provided: No Do you have a plan to hurt others: No Plan Physical Exam ED Vital Signs: Vital Signs - 24 hr 07/01/24 21:56 Temperature 98.4 F Pulse Rate 52 Respiratory Rate 14 Blood Pressure 112/54 L Pulse Oximetry 99 Oxygen Delivery Method Room Air BMI result Body Mass Index 19.4 Const Other: Appearance: somnolent but easily arousable Eyes: Pupils equal, round and reactive to light. ENT: Pharynx normal. Neck: Normal inspection. Neck supple. No lymph nodes noted. No crepitus CVS: Normal heart rate and rhythm. Pulses normal. Normal S1 and S2 Respiratory: No respiratory distress. Breath sounds normal. No Wheezing. No rales Abdomen: Soft and nontender. No rigidity. No distention. Skin: Skin warm and dry. Normal skin color. Normal skin turgor. Extremities: No lower extremity edema. No Lacerations. No Rash Neuro: somnolent, easily arousable, cranial nerves 2 through 12 grossly intact Psych: calm, sleepy, cooperative Course Course Course Narrative: patient is somnolent but easily arousable - patient's vitals stable - patient on continuous O2 monitoring, sleeping. - Plan: Metabolize to freedom and discharge - physician observation started at 00:24 Medical Decision Making Differential Diagnosis Differential Diagnoses: The differential diagnosis associated with the presentation includes ( polysubstance abuse, alcohol abuse) Admission/Observation Consideration of admission/observation: Escalation of care including admission/observation considered ( patient under physician observation waiting to become more sober and awake.) Discharge Plan Discharge Clinical Impression: Polysubstance abuse Patient Disposition: Still a Patient Print Language: Djib[place]ian
[2024-07-02 01:31] VITALS: PULSE 67; RESP 16; O2SAT 98
--- NOTE | 2024-07-02 01:40 | PC.NURSE ---
Pt sleeping at the bedside in no apparent distress. Breaths are even regular and unlabored with equal chest rises. Monitoring is on going.
[2024-07-02 06:36] VITALS: BP 120/71; PULSE 74; RESP 17; TEMP 36.1; O2SAT 97
[2024-07-02 08:32] VITALS: RESP 16
[2024-07-02 10:48] VITALS: BP 136/67; PULSE 60; RESP 16; TEMP 36.9; O2SAT 96
--- NOTE | 2024-07-02 12:31 | PC.NURSE ---
patient is sitting up, eating breakfast tray. states she is ready to go
[2024-07-02 12:36] VITALS: BP 152/89; PULSE 70; RESP 16; TEMP 36.1; O2SAT 100
== END 2024-07-02 12:43 | disposition home or self-care (01) ==
PROVIDERS: Emergency Provider Emergency Medicine
DX: F19.10 Other psychoactive substance abuse, uncomplicated (principal)
CPT/HCPCS: 99284

== ENCOUNTER 2025-03-16 22:26 | Emergency (ER) | payer OTHER, SELFPAY ==
[2025-03-16 22:30] VITALS: BMI 24.0
--- NOTE | 2025-03-16 22:37 | ED_ITS ---
HPI - Overdose General Chief Complaint: ETOH/Substance Use Stated Complaint: Smoked crack Time Seen by Provider: 03/16/25 22:31 Source: EMS Mode of arrival: EMS Limitations: altered mental status History of Present Illness ED Provider: Dr. Monica Menon HPI Narrative: 34-year-old female with unclear past medical history presenting reported crack cocaine use. Patient reportedly admitted this to EMS and PD who found her in the middle of the street. Patient arrives via EMS, extremely agitated, writhing all over the bed with her feet above her head. Requiring physical and chemical restraints. Unable to obtain further history at this time. Related Data Allergies Allergy/AdvReac Type Severity Reaction Status Date / Time No Known Allergies (No Known Allergy Verified 03/16/25 22:34 Allergies*) Review of Systems Review of Systems: Yes Unobtainable due to mental status PMFSH Past Medical History Source: unable to obtain, old records reviewed and nursing notes reviewed Medical History Polysubstance abuse Social History Social History Alcohol intake: current Alcohol intake frequency: a few times a month Substance Use Type: Crack/Cocaine Advance Directives: No Advance Directives Information Provided: No Physical Exam Vital Signs: Vital Signs: Last Vital Signs Temp 98.0 F 03/17/25 08:02 Pulse 58 03/17/25 08:02 Resp 18 03/17/25 08:02 BP 112/65 03/17/25 08:02 Pulse Ox 98 03/17/25 08:02 O2 Del Method Room Air 03/17/25 08:02 BMI result Body Mass Index 24.0 GENERAL: Anxious, agitated, uncontrolled movements. SKIN: Normal skin color for ethnicity, warm, dry, multiple skin excoriations of various degrees of healing, no crepitus, no petechiae, no blistering. HEENT: Normocephalic, atraumatic, no stridor, posterior oropharynx nonerythematous, poor [place] dentition, dry mucous membranes, EOMI, pupils equal, dilated, reactive to light. NECK: Soft, supple, full ROM, midline structures nontender, no step-offs, no deformities, no lymphadenopathy. CHEST: Heart regular tachycardia, no murmurs, symmetric chest rise and fall, no crepitus. PULMONARY: Clear to auscultation bilaterally, no labored breathing, no wheezes/rhales/rhonchi. ABDOMINAL: Soft, nondistended, nontender, positive bowel sounds in all quadrants. : Deferred. MUSCULOSKELETAL: Normal tone, full range of motion, no deformities, no peripheral edema. NEURO: Alert and oriented to person, CN II through XII intact, equal strength and sensation bilateral upper and lower extremities, no focal neurologic deficits. PSYCHIATRIC: Anxious affect, agitated, tangential speech, poor eye contact and psychomotor agitation. Medications Administered Discontinued Medications Generic Name Dose Route Start Last Admin Trade Name Freq PRN Reason Stop Dose Admin Midazolam HCl 5 mg 03/16/25 22:32 03/16/25 22:38 Midazolam Hcl 5 Mg/Ml Vial IM 03/16/25 22:33 5 mg ONCE ONE Administration Medical Decision Making Medical Decision Making MDM Narrative: Patient presents with a chief complaint of possible overdose/intoxication. ? Differential diagnosis includes life-threatening toxidrome such as anticholinergic syndrome, serotonin syndrome, sympathomimetic, opioid induced, among others.? Also includes co-ingestions, acidosis, intracranial process such as mass, hemorrhage, or CVA. Patient evaluated to determine if there is adequate GCS to maintain their airway as well as for hemodynamic stability.? Placed on instructional technology coach for blood pressure, heart rhythm and oxygen levels. Frequent reevaluations to ensure no worsening neurologic or hemodynamic inst ability. Differential Diagnosis Differential Diagnoses: The differential diagnosis associated with the presentation includes (as above) Admission/Observation Consideration of admission/observation: Escalation of care including admission/observation considered Independent Interpretation I performed an independent interpretation of an: Rhythm Strip (sinus tachycardia) Independent Historian Clinical information obtained from an independent historian. History obtained from or confirmed by: EMS Chronic Conditions Patient?s care impacted by: Other (polysubstance use) Social Determinants Patient?s care significantly limited by Social Determinants of Health including: Other Social Determinant of Health (chronic drug abuse) Discharge Plan Discharge Clinical Impression: Crack cocaine poisoning Patient Disposition: Home, Self-Care Instructions: Cocaine Use Disorder (ED), Acute Delirium (ED) Additional Instructions: Stop smoking crack. If you need help with your addictions you may always return to the hospital. Follow-up with your primary care doctor as soon as possible. Return to the emergency department with any new or worsening symptoms. Interventions: ED Discharge Assessment Last Done: 03/17/25 08:02 Discharge Date/Time: 03/17/25 08:03 Print Language: Sudanese
[2025-03-16 22:56] VITALS: BP 128/67; PULSE 87; RESP 16; O2SAT 95
--- NOTE | 2025-03-16 23:07 | PC.NURSE ---
Pt resting comfortably at this time. no apparent distress noted, call zavala w/in reach. VSS. no physical restraints needed, responded well to IM
--- NOTE | 2025-03-17 01:33 | MHC.EDTECH ---
Ambulated patient to the bathroom to attempt to urinate. Patient was unsuccessful, she has a steady gait. Brought patient devendra crackers and apple juice, okayed by RN. Patient being calm and cooperative
--- NOTE | 2025-03-17 01:50 | PC.NURSE ---
Pt resting comfortably after ambulating to bathroom with monogram technician, RR even and unlabored.
[2025-03-17 02:23] VITALS: BP 112/86; PULSE 54; RESP 16; O2SAT 97
[2025-03-17 06:09] VITALS: BP 117/69; PULSE 61; RESP 14; O2SAT 98
--- OUTSIDE RECORDS SUMMARY | 2025-03-17 06:10 | XMS_ITS | Clinical Summary ---
Author Organization [employer] Address [address] [facility] [address] [place] [address] Care Team Providers Care Wafer Slicer Name Role Phone Unavailable Primary Care Provider Unavailabl e Immunizations Immunization Administration Dates Next Due Moderna Covid-19 Vaccine 12+ 01/05/2022,10/07/19 Moderna Covid-19 Vaccine 6+ Bivalent 09/01/2022 Social History Tobacco Use Types Packs/Day Years Used Date Smoking Tobacco: Never Assessed Comments Unknown Sex and Gender Information Value Date Recorded Sex Assigned at Not on file Legal Sex Female 8:32 PM EDT Gender Identity Not on file Sexual Orientation Not on file Plan of Treatment Health Maintenance Due Date Last Done Comments Depression Screening 1990 HIV Screening 1990 SDOH Screening 1990 Disability Screening 1990 Alcohol/Substance Use Screening 2002 Tobacco Screening 2002 Family Planning (PISQ) 2005 Hepatitis C Screening 2008 DTaP/Tdap/Td Vaccines (1 - Tdap) 2009 Hepatitis B Vaccines (1 of 3 - 19+ 3-dose series) 2009 Pap Smear 2011 Cervical Cancer Screening 2020 HPV/Cotest 2020 COVID-19 Vaccine (4 - 2023-2 5 season) 2024 09/01/2022, 01/05/2022, 10/07/2021 Influenza Vaccine (#1) 2025 Zoster Vaccines (1 of 2) 2040 RSV Patients and Patients Aged 60 years or older (1 - 1-dose 75+ series) 2065 HIB Vaccines Aged Out No longer eligi ble based on patient's age to complete this topic HPV Vaccines Aged Out No longer eligi ble based on patient's age to complete this topic Hepatitis A Vaccines Aged Out No long er eligible based on patient's age to complete this topic IPV Vaccines Aged Out No longer eligi ble based on patient's age to complete this topic Meningococcal B Vaccine Aged Out No l onger eligible based on patient's age to complete this topic Meningococcal Vaccine Aged Out No leidy radha eligible based on patient's age to complete this topic Pneumococcal Vaccine: Pediatrics (0 to 5 Years) and At-Risk Patients (6 to 49) Years Aged Out No longer eligible b ased on patient's age to complete this topic RSV under 20 months Aged Out No longe r eligible based on patient's age to complete this topic Rotavirus Vaccines Aged Out No longer eligible based on patient's age to complete this topic Insurance [facility]
--- OUTSIDE RECORDS SUMMARY | 2025-03-17 06:10 | XMS_ITS | Clinical Summary ---
Author Organization [facility] Address [address] [place] [address] Care Team Providers Care Authorizer Name Role Phone Jong Salgado MD Primary Care Provider [phone] Social History Tobacco Use Types Packs/Day Years Used Date Smoking Tobacco: Never Assessed Comments Unknown Sex and Gender Information Value Date Recorded Sex Assigned at Not on file Legal Sex Female 2:54 PM EST Gender Identity Not on file Sexual Orientation Not on file Plan of Treatment Health Maintenance Due Date Last Done Comments Hepatitis A Vaccines (1 of 2 - Risk 2-dose series) 2009 Hepatitis B Vaccines (1 of 3 - 19+ 3-dose series) 2009 Cervical Cancer Screening: P ap Smear 2011 COVID-19 Vaccine (2023-2 5 season) 2024 Depression Screening 12/02/2024 HIV Screening 12/02/2024 Hepatitis C Screening 12/02/2024 Social Influencers of Health Screening 12/02/2024 Influenza Vaccine (#1) 2025 08/24/2017 DTaP,Tdap,and Td Vaccines (3 - Td or Tdap) 01/10/2027 01/10/2017, 04/30/2014 MMR Vaccines Aged Out 05/07/2014 No longer eligi ble based on patient's age to complete this topic HIB Vaccines Aged Out No longer eligi ble based on patient's age to complete this topic HPV Vaccines Aged Out No longer eligi ble based on patient's age to complete this topic IPV Vaccines Aged Out No longer eligi ble based on patient's age to complete this topic Meningococcal ACWY Vaccine Aged Out N o longer eligible based on patient's age to complete this topic Meningococcal B Vaccine Aged Out No l onger eligible based on patient's age to complete this topic Pneumococcal Vaccine: Pediatrics (0 to 5 Years) and At-Risk Patients (6 to 64 Years) Aged Out No longer eligible b ased on patient's age to complete this topic RSV Immunization Patients Under 20 months Aged Out No longer eligible b ased on patient's age to complete this topic Varicella Vaccines Aged Out No longer eligible based on patient's age to complete this topic Care Teams Authorizer Relationship Specialty Start Date End Date Jong Salgado MD [address] [place] [id number] PCP - General Internal Medicine 12/27/13
--- NOTE | 2025-03-17 06:15 | PC.NURSE ---
pt resting comfortably throughout the night, pt awakes to verbal stim but easily falls asleep during conversation. drinks and snacks provided per request
[2025-03-17 07:23] VITALS: BP 105/63; PULSE 54; RESP 18; O2SAT 100
--- NOTE | 2025-03-17 07:38 | PC.NURSE ---
pt sleeping, wakes to verbal stimulus, rr equal/non labored, vss, call zavala within reach, plan of care ongoing
--- NOTE | 2025-03-17 08:01 | PC.NURSE ---
repeat lab drawn, pt medicated per order
[2025-03-17 08:02] VITALS: BP 112/65; PULSE 58; RESP 18; TEMP 36.7; O2SAT 98
== END 2025-03-17 08:03 | disposition home or self-care (01) ==
PROVIDERS: Emergency Provider Emergency Medicine; PCP Pediatrics
DX: T40.5X1A Poisoning by cocaine, accidental (unintentional), initial encounter (principal); Y92.9 Unspecified place or not applicable
CPT/HCPCS: 96372; 99284; J2250

== ENCOUNTER 2025-04-02 12:01 | Outpatient (REF) | payer OTHER, SELFPAY ==
--- OUTSIDE RECORDS SUMMARY | 2025-04-02 12:42 | XMS_ITS | Clinical Summary ---
Author Organization [employer] Address [address] [facility] [address] [place] [address] Care Team Providers Care Landscape Specialist Name Role Phone Unavailable Primary Care Provider [...] Tobacco Screening 2002 Family Planning (PISQ) 2005 HPV Vaccines (1 - 3-dose series) 2005 Hepatitis C Screening 2008 DTaP/Tdap/Td Vaccines [...] patient's age to complete this topic Insurance [facility]
--- OUTSIDE RECORDS SUMMARY | 2025-04-02 12:42 | XMS_ITS ---
[facility] Name [facility] Organization Unknown Care Team Organization Name Specialty Phone Email Start Date End Da laureen [facility] ALFIE LOPEZ Primary Care 07/19/2022 04/29/2024
--- OUTSIDE RECORDS SUMMARY | 2025-04-02 12:42 | XMS_ITS | Clinical Summary ---
Author Organization [facility] Address [address] [place] [address] Care Team Providers Care Grit Removal Operator Name Role Phone Jong Salgado MD Primary Care Provider [phone] Social History Tobacco Use Types Packs/Day Years [...] Screening: P ap Smear 2011 COVID-19 Vaccine ( - 2023-2 5 season) 2024 Depression Screening 09/11/2024 HIV Screening 12/02/2024 Hepatitis C Screening 12/02/2024 [...] 5 Years) and At-Risk Patients (6 to 49 Years) Aged Out No longer eligible b ased on patient's age to complete this topic RSV Immunization Patients Under 20 months Aged Out No longer eligible b ased on patient's age to complete this topic Varicella Vaccines Aged Out No longer eligible based on patient's age to complete this topic Care Teams Grit Removal Operator Relationship Specialty Start Date End Date Jong Salgado MD [address] [place] [id number] PCP - General Internal Medicine 12/27/13
[2025-04-02 13:16] LABS: MANUAL DIFF FLAG NO
[2025-04-02 13:34] LABS: Hematocrit 39.3 % (37.0-47.0); Hemoglobin 12.6 g/dl (12.0-16.0); Imm Gran Abs Auto 0.01 X10*3/uL (0.00-0.03); Imm Gran Pct Auto 0.2 % (0.0-0.4); Lymphocytes Absolute Auto 2.1 X10*3/uL (1.2-4.9); Mean Corpuscular HGB Conc 32.1 g/dl (31.0-35.0); Mean Corpuscular Hemoglobin 27.7 pg (27.0-33.0); Mean Corpuscular Volume 86.4 fL (80.0-98.0); NRBC Abs Auto 0.000 X10*3/uL (0.0-0.012); NRBC Pct Auto 0.0 /100WBC (0.0-0.2); Platelet Count 234 X10*3/uL (160-400); Red Blood Count 4.55 X10*6/uL (4.20-5.50); White Blood Count 5.1 X10*3/uL (4.8-10.8)
[2025-04-02 13:45] LABS: Hemoglobin A1C 98.6074 umol/L; Total Hemoglobin (HGBA1C) 3271.1969 umol/L
[2025-04-02 14:23] LABS: Alanine Aminotransferase 15 U/L (0-31); Albumin Level 4.1 g/dL (3.5-5.0); Alkaline Phosphatase 73 U/L (39-117); Anion Gap 9 (12-20); Aspartate Amino Transferase 21 U/L (5-31); Blood Urea Nitrogen 11 mg/dL (9-16); Calcium 9.0 mg/dL (8.4-10.2); Carbon Dioxide 27 mmol/L (22-29); Chloride 109 mmol/L (96-108); Cholesterol 139 mg/dL (<200); Estimated Glomerular Filt Rate > 60; HDL Cholesterol 55 mg/dL (>40); Potassium 4.2 mmol/L (3.3-5.1); Sodium 141 mmol/L (135-145); Total Protein 7.1 g/dL (6.5-8.0); Triglycerides 56 mg/dL (<150)
[2025-04-02 14:44] LABS: Thyroid Stimulating Hormone 1.24 uIU/mL (0.32-4.0)
== END 2025-04-02 12:02 | disposition home or self-care (01) ==
LOC: HO.HHCL 12:01
PROVIDERS: Visit Provider Dietitian, Registered
DX: F43.10 Post-traumatic stress disorder, unspecified (principal); F33.0 Major depressive disorder, recurrent, mild
CPT/HCPCS: 36415; 80053; 80061; 83036; 84443; 85025

== ENCOUNTER 2025-04-17 04:16 | Emergency (ER) | payer OTHER, SELFPAY ==
[2025-04-17 05:06] VITALS: BP 123/84; BP 124/84; PULSE 34; PULSE 35; RESP 18; TEMP 35.5; O2SAT 100; O2SAT 97; BMI 22.9
[2025-04-17 05:16] VITALS: BP 97/65; PULSE 37; RESP 16; O2SAT 100
[2025-04-17 05:17] LABS: MANUAL DIFF FLAG NO
--- NOTE | 2025-04-17 05:21 | PC.NURSE ---
pt biba after being found unresponsive on the street d/t suspected overdose - EMS administered 4mg narcan w/ minimal to no effect. upon EMS arrival - pt extremely restless/agitated/uncooperative. patient eventually changed over w/ security - belongings placed in marie port shelf #2. vitals obtained - pt slightly hypothermic as well as bradycardic in the 30s. no bear hugger needed at this time per MD - warm blankets applied. otherwise vss and up to date. maintaining airway w/o difficulty. no sob/wob noted. respirations even/unlabored. pt remained uncooperative - multiple staff members bedside to assist in initiating IV access. d/t lack of access - 22gIV placed in the right foot. labs obtained/sent to lab. access wrapped w/ gauze for safety precautions. pt otherwise remains responsible to painful stimuli only. only able to state first name - otherwise disoriented. provider bedside/aware of pt's status. plan of care ongoing.
[2025-04-17 05:25] LABS: Hematocrit 35.4 % (37.0-47.0); Hemoglobin 11.9 g/dl (12.0-16.0); Imm Gran Abs Auto 0.01 X10*3/uL (0.00-0.03); Imm Gran Pct Auto 0.2 % (0.0-0.4); Lymphocytes Absolute Auto 2.5 X10*3/uL (1.2-4.9); Mean Corpuscular HGB Conc 33.6 g/dl (31.0-35.0); Mean Corpuscular Hemoglobin 28.5 pg (27.0-33.0); Mean Corpuscular Volume 84.7 fL (80.0-98.0); NRBC Abs Auto 0.000 X10*3/uL (0.0-0.012); NRBC Pct Auto 0.0 /100WBC (0.0-0.2); Platelet Count 161 X10*3/uL (160-400); Red Blood Count 4.18 X10*6/uL (4.20-5.50); White Blood Count 4.8 X10*3/uL (4.8-10.8)
[2025-04-17 05:37] VITALS: BP 140/93; PULSE 41; RESP 15; O2SAT 98
[2025-04-17 05:38] LABS: Acetaminophen LAB < 3 mcg/mL (<30); Alanine Aminotransferase 81 U/L (0-31); Albumin Level 4.0 g/dL (3.5-5.0); Alkaline Phosphatase 71 U/L (39-117); Anion Gap 15 (12-20); Aspartate Amino Transferase 41 U/L (5-31); Blood Urea Nitrogen 15 mg/dL (9-16); Calcium 9.1 mg/dL (8.4-10.2); Carbon Dioxide 24 mmol/L (22-29); Chloride 107 mmol/L (96-108); Creatinine Clr Calc Pharmacy 96.3; Estimated Glomerular Filt Rate > 60; Magnesium 2.1 mg/dL (1.6-2.6); Potassium 4.6 mmol/L (3.3-5.1); Salicylate < 5.0 mg/dL (15-30); Sodium 141 mmol/L (135-145); Total Protein 7.1 g/dL (6.5-8.0)
[2025-04-17 05:52] VITALS: BP 118/95; PULSE 45; RESP 18; O2SAT 100
[2025-04-17 06:01] LABS: Troponin-I High Sensitivity < 2.7 ng/L (<3.5-17.0)
[2025-04-17 06:22] VITALS: BP 102/51; PULSE 49; RESP 15; TEMP 36.3; O2SAT 98
[2025-04-17 06:38] LABS: Cannabinoid Screen Urine Not Detected (Not Detect)
--- NOTE | 2025-04-17 07:04 | PC.NURSE ---
This RN assumed care of patient @ 0700. Patient resting at this time. Patient HR viet at times down to 48 but then back up to 60 O2 97% RA. No respiratory distress noted. IV 22 G in right foot wrapped. Patient calm and cooperative at this time.
--- NOTE | 2025-04-17 07:06 | ED_ITS ---
HPI - Overdose General Chief Complaint: Overdose Stated Complaint: OD Time Seen by Provider: 04/17/25 06:12 Source: patient and EMS Mode of arrival: EMS Limitations: other History of Present Illness ED Provider: Dr. Sandy Mackenzie HPI Narrative: Patient comes in the emergency room via ambulance. According to EMS, the patient was found unresponsive on the street, administer 4 mg of Narcan with minimal effect. Patient was noted to be bradycardic. However, when patient arrived, patient admits that she has been using crack cocaine and heroin. Patient denies SI or HI. Related Data Allergies Allergy/AdvReac Type Severity Reaction Status Date / Time No Known Allergies (No Known Allergy Verified 04/17/25 05:07 Allergies*) Review of Systems 2 Review of Systems: Constitutional : No Weight loss, No Fever, No Chills, No Night Sweats, No Fatigue, No Malaise ENT/Mouth : No Hearing loss, No Ear Pain, No Nasal Congestion, No Sinus Pain, No Hoarseness, No sore throat, No Rhinorrhea, No Swallowing Difficulty Eyes: No Eye Pain, No Swelling, No Redness, No Foreign Body, No Discharge, No Vision Changes Cardiovascular : No Chest Pain, No SOB, No Dyspnea on Exertion, No Orthopnea, No Edema, No Palpitations Respiratory : No Cough, No Sputum, No Wheezing, No Smoke Exposure, No Dyspnea Gastrointestinal : No Nausea, No Vomiting, No Diarrhea, No Constipation, No abdominal Pain, No Hematochezia, No Melena Genitourinary : no irregular bleeding, No Dysuria, No Urinary Frequency, No Hematuria, No Urinary Incontinence, No Urgency, No Flank Pain, No Urinary Flow Changes, No Hesitancy Musculoskeletal : No joint pain, No Myalgias, No Joint Swelling Skin : No Skin Lesions, No rash Neuro : No Weakness, No Numbness, No Paresthesias, No Loss of Consciousness, No Dizziness, No Headache Psych : Denies HI, denies SI, admits to polysubstance abuse Heme/Lymph: No Bruising, No Bleeding,No Lymphadenopathy Endocrine : No Polyuria, No Polydipsia, No Temperature Intolerance PMF Past Medical History Medical History Polysubstance abuse Social History Social History Alcohol intake: current Alcohol intake frequency: a few times a month Substance Use Type: Crack/Cocaine Advance Directives: No Advance Directives Information Provided: Yes Do you have a plan to hurt others: No Plan Physical Exam 2 Exam: Exam: Appearance: Alert. Somnolent but easily arousable, disheveled Eyes: Pupils equal, round and reactive to light. ENT: Pharynx normal. Neck: Normal inspection. Neck supple. No lymph nodes noted. No crepitus CVS: Normal heart rate and rhythm. Pulses normal. Normal S1 and S2 Respiratory: No respiratory distress. Breath sounds normal. No Wheezing. No rales Abdomen: Soft and nontender. No rigidity. No distention. Skin: Skin warm and dry. Normal skin color. Normal skin turgor. Extremities: No lower extremity edema. No Lacerations. No Rash Neuro: Somnolent but easily arousable Psych: calm, somnolent Vital Signs: Vital Signs: Last Vital Signs Temp 97.4 F 04/17/25 06:22 Pulse 49 L 04/17/25 06:22 Resp 15 04/17/25 06:22 BP 102/51 L 04/17/25 06:22 Pulse Ox 98 04/17/25 06:22 O2 Del Method Room Air 04/17/25 06:22 BMI result Body Mass Index 22.9 Course Course Course Narrative: Patient was given 4 mg of Narcan today. On arrival, it was noted that patient is bradycardic, sometimes rubs to the 30s while sleeping. The pain patient wakes up and tries to get out of bed, patient's heart rate appropriately increases to the 50s and 60s and then falls back asleep. Of patient's labs pending Reevaluation(s) Reevaluation #1: Kevin Marti: I was informed by the nurse that the patient had asked for discharge. The patient was given a naloxone take home kit. She was discharged before I had a chance to evaluate the patient. The patient apparently looked well and was very comfortable with the plan to be discharged. Time: 07:39 Medical Decision Making Medical Decision Making MDM Narrative: No significant abnormality in patient's hematology, she within normal limits, troponin negative urine toxicology positive for opiates, methadone, fentanyl, cocaine. Toxicology negative for acetaminophen and salicylates Patient's bradycardia likely secondary to polysubstance abuse. Of the patient was bradycardic, patient's blood pressure was in the 120s systolic. Patient had no complaints. At this time, patient is still under the influence of medications/drugs. When awake, can be discussed with the patient if she wants information for detox/polysubstance abuse. An order for home Narcan has been place. Sign-out given to my colleague Dr. Marti Differential Diagnosis Differential Diagnoses: The differential diagnosis associated with the presentation includes (Alcohol intoxication, polysubstance abuse) Admission/Observation Consideration of admission/observation: Escalation of care including admission/observation considered (Given patient's initial presentation, vital signs, observation/admission was considered.) Lab Data MDM Lab Attestation statement: I reviewed the patient's lab results. 04/17/25 05:10 04/17/25 05:10 Labs: Lab Results 04/17/25 04/17/25 Range/Units 05:10 06:21 WBC 4.8 (4.8-10.8) X10*3/uL RBC 4.18 L (4.20-5.50) X10*6/uL Hgb 11.9 L (12.0-16.0) g/dl Hct 35.4 L (37.0-47.0) % MCV 84.7 (80.0-98.0) fL MCH 28.5 (27.0-33.0) pg MCHC 33.6 (31.0-35.0) g/dl RDW 14.6 (11.0-16.0) % Plt Count 161 D (160-400) X10*3/uL MPV 9.6 (9.4-12.3) fL Immature Gran % (Auto) 0.2 (0.0-0.4) % Neut % (Auto) 36.2 L (45-73) % Lymph % (Auto) 52.3 H (20-40) % [place] % (Auto) 8.8 (2-11) % Eos % (Auto) 2.1 (0-4) % Baso % (Auto) 0.4 (0-2) % Lymph # (Auto) 2.5 (1.2-4.9) X10*3/uL [place] # (Auto) 0.4 (0.1-1.2) X10*3/uL Eos # (Auto) 0.1 (0.0-0.4) X10*3/uL Baso # (Auto) 0.0 (0.0-0.2) X10*3/uL Abs Immat Gran (auto) 0.01 (0.00-0.03) X10*3/uL Absolute Neuts (auto) 1.7 L (2.0-8.3) x10*3/uL Absolute Nucleated RBC 0.000 (0.0-0.012) X10*3/uL Nucleated RBC % (auto) 0.0 (0.0-0.2) /100WBC Sodium 141 (135-145) mmol/L Potassium 4.6 (3.3-5.1) mmol/L Chloride 107 (96-108) mmol/L Carbon Dioxide 24 (22-29) mmol/L Anion Gap 15 (12-20) BUN 15 (9-16) mg/dL Creatinine 0.77 (0.5-1.4) mg/dL Estim Creat Clear Calc 96.3 Estimated GFR > 60 Random Glucose 168 H (60-115) mg/dL Calcium 9.1 (8.4-10.2) mg/dL Magnesium 2.1 (1.6-2.6) mg/dL Total Bilirubin 0.6 (0.0-1.0) mg/dL AST 41 H (5-31) U/L ALT 81 H (0-31) U/L Alkaline Phosphatase 71 (39-117) U/L Troponin I High Sens < 2.7 (<3.5-17.0) ng/L Total Protein 7.1 (6.5-8.0) g/dL Albumin 4.0 (3.5-5.0) g/dL Salicylates < 5.0 L (15-30) mg/dL Urine Opiates Screen POSITIVE H (Not Detect) Ur Buprenorphine Scrn Not Detected (Not Detect) ng/mL Ur Oxycodone Screen Not Detected (Not Detect) ng/mL Urine Methadone Screen Positive H (Not Detect) ng/mL Urine Fentanyl Screen POSITIVE H (Not Detect) Acetaminophen < 3 (<30) mcg/mL Ur Barbiturates Screen Not Detected (Not Detect) Ur Phencyclidine Scrn Not Detected (Not Detect) Ur Amphetamines Screen Not Detected (Not Detect) U Benzodiazepines Scrn Not Detected (Not Detect) Urine Cocaine Screen POSITIVE H (Not Detect) U Marijuana (THC) Screen Not Detected (Not Detect) Critical Care Time Critical Care Time Critical Care Time: Yes Total Critical Care Time: 35 Attestation: I have personally provided critical care time. Time includes review of lab data, radiology results, discussion with consultants, and monitoring for potential decompensation. Intervention performed as documented. Discharge Plan Discharge Clinical Impression: Drug overdose, Polysubstance abuse Patient Disposition: Home, Self-Care Print Language: Faroese
[2025-04-17 07:39] VITALS: BP 102/51; PULSE 49; RESP 15; TEMP 36.3; O2SAT 98
[2025-04-17] MEDS: Naloxone HCl Nasal TAKE HOME 4 MG SPRAY 8 MG NOSTRILALT (08:27)
--- NOTE | 2025-04-17 08:41 | PC.NURSE ---
Patient was agreeable with discharge, patient belongings gathered, Patient then refused to be discharged. Notified security. Security able to [employer] architect patient. Patient signed paperwork, IV removed
== END 2025-04-17 08:42 | disposition home or self-care (01) ==
PROVIDERS: Emergency Provider Emergency Medicine
DX: T40.1X4A Poisoning by heroin, undetermined, initial encounter (principal); T40.5X4A Poisoning by cocaine, undetermined, initial encounter; R40.4 Transient alteration of awareness; Y92.488 Other paved roadways as the place of occurrence of the external cause
CPT/HCPCS: 36415; 80053; 80143; 80179; 80307; 83735; 84484; 85025; 99284; 99285

== ENCOUNTER 2025-05-13 18:54 | Emergency (ER) | payer OTHER, SELFPAY ==
[2025-05-13 19:12] VITALS: BP 174/82; PULSE 115; O2SAT 98
[2025-05-13 19:13] VITALS: BMI 26.6
[2025-05-13 19:21] VITALS: BP 133/70; PULSE 93; RESP 16; TEMP 37.7; O2SAT 96
--- NOTE | 2025-05-13 21:26 | PC.NURSE ---
per PA ok to reval pt in AM and to allow them to sleep at this time. no need for labs/ua at this time. pt sleeping resp even and unlabored 99% on RA.
--- NOTE | 2025-05-14 02:08 | ED_ITS ---
HPI - General Adult General Chief complaint: ETOH/Substance Use Stated complaint: Found in the road admit ETOH agitated Time Seen by Provider: 05/13/25 20:10 Source: EMS and police Limitations: other (Intoxicated) History of Present Illness ED Provider: Marina Mcbride PA-C HPI narrative: 34-year-old female with a history of polysubstance abuse, alcohol use disorder presents intoxicated. Patient was found by police wandering in the street. Patient denies SI HI, refuses recovery team and detox. Related Data Home Medications ?Medication ?Instructions ?Recorded ?Confirmed methadone 10 mg/mL oral 105 mg PO DAILY 05/14/2512/03 concentrate (Methadone Intensol) Allergies Allergy/AdvReac Type Severity Reaction Status Date / Time No Known Allergies (No Known Allergy Verified 05/13/25 19:15 Allergies*) Review of Systems Review of Systems: Unable to obtain Yes all other systems are reviewed and are negative PMFSH Past Medical History Attestation statement: The following information was validated with the patient. Medical History Polysubstance abuse Social History Social History Alcohol intake: current Alcohol intake frequency: a few times a month Smoked in Last 30 Days: Yes Use of substances other than those prescribed or required for medical reasons: Yes Substance Use Type: Crack/Cocaine and Heroin Substance Use Frequency: Daily Advance Directives: No Advance Directives Information Provided: No Do you have a plan to hurt others: No Plan Physical Exam ED Vital Signs: Vital Signs - 24 hr 05/14/25 03:33 05/14/25 11:32 Temperature 98.9 F 98.9 F Pulse Rate 94 94 Respiratory Rate 18 18 Blood Pressure 129/74 129/74 Pulse Oximetry 95 95 Oxygen Delivery Method Room Air Room Air BMI result Body Mass Index 26.6 Const Other: Sleeping, we will wake with verbal and light physical stimuli appears older than stated age Orientation/consciousness: patient oriented x3 Resp Effort & Inspection: normal respiratory effort Cardio Other: Normal peripheral perfusion Skin Other: Warm dry no rash Neuro General: patient oriented x3, gait normal, no focal motor deficits and CN's II- XI intact bilaterally Psych Other: Hostile, belligerent, uncooperative Course Reevaluation(s) Reevaluation #1: Time: 02:11 Date: 05/14/25 Provider: MARIAM Musa Patient in physician observation for psychiatric evaluation.? No acute events reported overnight. No current complaints. VS stable.? Patient is in bed search status/pending CARE team evaluation. Will continue to monitor. Reevaluation #2: 11:09 AM 05/14/2025 (Alexandra Malone PA-C): Patient remains to be in physician observation, she is clinically sober, speaking full sentences, she is in no acute distress. She states that she is feeling well and would like to be discharged. She is on methadone, last dose was 105 mg on May 06. Given that this is greater than 3 days, patient needs to be restarted back on methadone. Patient denies any SI or HI. No chest pain or shortness of breath. Vital signs stable. Discussed strict return precautions. Given take-home Narcan. Patient stable for discharge. Physician observation ended at 11:15 a.m. this morning. Medications Administered Discontinued Medications Generic Name Dose Route Start Last Admin Trade Name Sadie PRN Reason Stop Dose Admin Methadone HCl 40 mg 05/14/25 11:11 05/14/25 11:21 Methadone Hcl 20 Mg/2 Ml Oral.Conc PO 05/14/25 11:12 40 mg ONCE ONE Administration Naloxone HCl 8 mg 05/14/25 11:11 05/14/25 11:19 Naloxone Hcl Nasal Take Home 4 Mg [place] NOSTRILALT 05/14/25 11:12 8 mg ONCE ONE Administration Medical Decision Making Medical Decision Making MDM Narrative: 34-year-old female with a history of polysubstance abuse, alcohol use disorder presents intoxicated. Patient was found by police wandering in the street. Patient denies SI HI, refuses recovery team and detox. Problem: Polysubstance abuse, alcohol use disorder History: Per patient which is limited , primarily obtained via EMS I have considered the following differential diagnoses: Drug/alcohol intoxication, SI, HI, decompensated psychiatric illness Plan: Patient refusing labs, we will continue to monitor her until she is clinically sober. We will offer varsity baseball coach services again. Differential Diagnosis Differential Diagnoses: The differential diagnosis associated with the presentation includes See medical decision-making Discharge Plan Discharge Clinical Impression: Polysubstance abuse Patient Disposition: Home, Self-Care Instructions: Polysubstance Use Disorder (ED) Additional Instructions: You were seen in the emergency department after being found walking back and forth on the street. You did not want any additional help with detox. We gave you a dose of methadone 40 mg in the department today. Please follow-up with your methadone clinic. Please try to avoid drugs as they will kill you. Had given you Narcan to take home for safety precautions. Prescriptions: No Action methadone [Methadone Intensol] 10 mg/mL Concentrate 105 mg PO DAILY Interventions: ED Discharge Assessment Last Done: 05/14/25 11:32 Discharge Date/Time: 05/14/25 11:41 Print Language: [place] Citizen
[2025-05-14 03:33] VITALS: BP 129/74; PULSE 94; RESP 18; TEMP 37.2; O2SAT 95
--- NOTE | 2025-05-14 07:28 | PC.NURSE ---
This RN assumed care of patient @ 0700 Patient resting at this time Patient changed over No IV access No signs of withdraw noted
--- NOTE | 2025-05-14 11:04 | HE.PHANOTE ---
RE: METHADONE DOSING Last methadone 105 mg was given on 05/06/25 @1769 at [facility] [phone] per Clarissa HOBSON.
[2025-05-14] MEDS: Naloxone HCl Nasal TAKE HOME 4 MG SPRAY 8 MG NOSTRILALT (11:19)
[2025-05-14] MEDS: methADONE HCl 20 MG/2 ML ORAL.CONC 40 MG PO (11:21)
[2025-05-14 11:32] VITALS: BP 129/74; PULSE 94; RESP 18; TEMP 37.2; O2SAT 95
== END 2025-05-14 11:41 | disposition home or self-care (01) ==
PROVIDERS: Emergency Provider Emergency Medicine
DX: F19.10 Other psychoactive substance abuse, uncomplicated (principal); F10.129 Alcohol abuse with intoxication, unspecified
CPT/HCPCS: 99284